=== PATIENT | female | born 1995 | race Caucasian/White ===

== ENCOUNTER 2021-09-21 14:23 | Emergency (ER) | payer OTHER ==
[~2021-09-21] VITALS: Ht 154.9 cm; Wt 69.4 kg
[2021-09-21 14:32] VITALS: BP 118/70
[2021-09-21] MEDS ORDERED: MORPHINE SULFATE 4 MG/ML SYR IVP ONE (14:45)
[2021-09-21] MEDS ORDERED: NACL 0.9% 1,000 ML IV ONE (14:45)
--- NOTE | 2021-09-21 14:53 | NUR ---
PT AMBULATED TO ER BED 6
[2021-09-21] MEDS ORDERED: ACETAMINOPHEN EXTRA STRENGTH 500 MG TAB PO ONE (15:05)
--- NOTE | 2021-09-21 15:10 | NUR ---
25YO FEMALE PT C/O SUDDEN CRAMPING "EMPTY" 09/16 ABDOMINAL PAIN X4AM THIS MORNING. PT HAS BILATERAL ABDOMINAL PAIN WITH INCREASED PAIN IN R LOWER. PT CURRENTLY 19 WEEKS , G1PO. PT HAD ROUTINE OB VISIT YESTERDAY AND STATES EVERYTHING WAS STABLE. PT UNABLE TO TOLERATE SOLID FOOD AND STATES SHE HAD BROTH FOR LUNCH WHICH ALSO GAVE HER MILD NAUSEA. PT DENIES TAKING MEDICATION FOR PAIN. DENIES CHEST PAIN, V/D OR SOB. DENIES VAGINAL BLEEEDIG OR DISCHARGE. PT LR ABDOMEN TENDER TO TOUCH. PT AAOX4, IN VISIBLE DISTRESS AND SITTING UP PER COMFORT. HX: DENIES NKA Addendum: 09/21/21 at 1623 by PHSEP DENIES DYURIA OR BACK PAIN
[2021-09-21 15:18] LABS: HEMATOCRIT 37.2 % (36-48); HEMOGLOBIN 12.6 g/dL (12.0-16.0); LYMPHOCYTES # (AUTO) 0.5 K/uL (2.5-16.5); MEAN CORPUSCULAR HEMOGLOBIN 31 pg (27-31); MEAN CORPUSCULAR HGB CONC 34 g/dL (33-37); MEAN CORPUSCULAR VOLUME 92.4 fL (80-94); MONOCYTES # (AUTO) 0.4 K/uL (0.8-1.0); MONOCYTES % (AUTO) 3.1 % (1.7-9.3); NEUTROPHILS # (AUTO) 12.3 K/uL (1.8-7.7); NEUTROPHILS % (AUTO) 92.9 % (42.2-75.2); PLATELET COUNT (AUTO) 244 K/uL (140-450); RED BLOOD CELL COUNT(AUTO) 4.02 MIL/uL (4.20-5.40); RED CELL DISTRIBUTION WIDTH 13.5 % (11.6-13.7); WHITE BLOOD COUNT (AUTO) 13.2 K/uL (4.8-10.8)
[2021-09-21] MEDS ORDERED: METOCLOPRAMIDE 10 MG/2 ML INJ VIAL IVP ONE (15:20)
--- NOTE | 2021-09-21 15:20 | NUR ---
ULTRASOUND AT BEDSIDE
[2021-09-21 15:34] LABS: ALBUMIN 3.5 g/dL (3.4-5.0); ANION GAP 14.1 (8-16); CARBON DIOXIDE 23.1 mmol/L (21-32); CREATININE 0.5 mg/dL (0.6-1.3); POTASSIUM 4.2 mmol/L (3.5-5.1); TOTAL BILIRUBIN 0.3 mg/dL (0.0-1.0)
--- NOTE | 2021-09-21 15:45 | NUR ---
25/F PRESENTS TO ED WITH C/O GENERALIZED ABDOMINAL PAIN SINCE 4AM. PATIENT REPORTS BEING 19 WEEKS , STATES SHE SAW HER OB DR. LAMBERT FOR A ROUTINE VISIT TODAY AND WAS REFERRED TO ED FOR FURTHER EVALUATION. PATIENT DENIES V/D, VAGINAL BLEEDING OR DISCHARGE, PATIENT IS A0.
[2021-09-21] MEDS ORDERED: ACETAMINOPHEN EXTRA STRENGTH 500 MG TAB ONE (16:04)
--- NOTE | 2021-09-21 16:07 | NUR ---
ULTRASOUND AT BEDSIDE
[2021-09-21] MEDS ORDERED: ACET-10509 PO (16:51)
--- NOTE | 2021-09-21 17:00 | NUR ---
IV removed, catheter intact and site benign. Applied folded 4x4 gauze and tape to stop bleeding.
--- NOTE | 2021-09-21 17:09 | NUR ---
Patient discharged with v/s stable. Written and verbal after care instructions FOR ABDOMINAL PAIN DURING , SECOND TRIMESTRER OF given and explained. Patient alert, oriented and verbalized understanding of instructions. Ambulatory with steady gait. All questions addressed prior to discharge. ID band removed. Patient advised to follow up with PMD. Rx of ACETAMINOPHEN TAB given. Opportunity to ask questions provided and answered.
[2021-09-21 17:10] VITALS: BP 112/91
--- NOTE | 2021-09-21 17:15 | NUR ---
The patient's care was reviewed and supervised by Lashae Ozuna RN.
[2021-09-21 19:16] LABS: APPEARANCE,URINE CLEAR (CLEAR); BILIRUBIN,URINE NEGATIVE (NEGATIVE); BLOOD, URINE NEGATIVE (NEGATIVE); COLOR,URINE YELLOW (YELLOW); LEUKOCYTE ESTERASE ,URINE NEGATIVE (NEGATIVE); NITRITE, URINE NEGATIVE (NEGATIVE); UGLUCOSE NEGATIVE (NEGATIVE)
== END 2021-09-21 17:09 | disposition home or self-care (01) ==
LOC: MED 14:23
DX: O26.892 Other specified pregnancy related conditions, second trimester (principal); Z3A.19 19 weeks gestation of pregnancy
CPT/HCPCS: 36415; 76705; 76805; 80053; 81003; 81025; 83690; 85025; 96361; 96374; 99284; J2765; J7030; Q0092

== ENCOUNTER 2021-11-28 06:28 | Observation (INO) | payer OTHER ==
[~2021-11-28] VITALS: Ht 154.9 cm; Wt 73.9 kg
[~2021-11-28 06:28] MED LIST: ACET-10509 PO
[2021-11-28] MEDS ORDERED: PNV1TABL5 PO (07:00)
[2021-11-28 07:05] VITALS: BP 116/69
== END 2021-11-28 07:55 | disposition home or self-care (01) ==
LOC: MLD 06:28
PROVIDERS: ADMIT Obstetrics & Gynecology; ATTEND Obstetrics & Gynecology
DX: O26.893 Other specified pregnancy related conditions, third trimester (principal); Z20.822 Contact with and (suspected) exposure to COVID-19; R10.9 Unspecified abdominal pain; Z3A.29 29 weeks gestation of pregnancy
CPT/HCPCS: 87426; G0378; G0379; 81000